=== PATIENT | male | born 1985 | race Caucasian/White ===

== ENCOUNTER 2024-07-19 06:02 | Day surgery (SDC) | payer BC ==
[2024-07-15 08:27] VITALS: BMI 46.7
[2024-07-19] MEDS ORDERED: Bupivacaine/Epinephrine 0.25% 30 ML VIAL ONE (06:45)
[2024-07-19] MEDS ORDERED: CEFAZOLIN 2 GM VIAL ONE (07:05)
[2024-07-19] MEDS ORDERED: Famotidine/PF 20 mg/2ml Vial ONE (07:07)
[2024-07-19] MEDS ORDERED: PROPOFOL 40 ML ONE (07:18)
[2024-07-19] MEDS ORDERED: Fentanyl 100 MCG/2 ML VIAL ONE (07:18)
[2024-07-19] MEDS ORDERED: Rocuronium Bromide 10 MG/ML (10ML VIAL) ONE (07:20)
[2024-07-19] MEDS ORDERED: Lidocaine 2% PF 5 ML VIAL ONE (07:21)
[2024-07-19] MEDS ORDERED: Ketorolac Tromethamine 30 MG (1 mL) VIAL ONE (07:39)
[2024-07-19] MEDS ORDERED: Ondansetron PF 4 MG/2 ML Vial ONE (07:39)
[2024-07-19] MEDS ORDERED: Dexamethasone 4 mg/ml Vial ONE (07:39)
[2024-07-19] MEDS ORDERED: SUGAMMADEX SODIUM 200 MG/2 ML VIAL ONE (07:39)
[2024-07-19] MEDS ORDERED: Dexmedetomidine 200 MCG/2 ML VIAL ONE (07:53)
[2024-07-19] MEDS ORDERED: fentaNYL 50 mcg/mL 1 mL Vial ONE (08:48)
[2024-07-19] MEDS ORDERED: HYDROcodone/Acetaminophen 5/325 mg Tablet ONE (09:15)
== END 2024-07-19 09:50 | disposition home or self-care (01) ==
LOC: CSHSDC 06:02
PROVIDERS: ATTEND Surgery
PROC: 0YU64JZ Supplement Left Inguinal Region with Synthetic Substitute, Percutaneous Endoscopic Approach (ICD-10-PCS; principal; 2024-07-19)
DX: K40.90 Unilateral inguinal hernia, without obstruction or gangrene, not specified as recurrent (principal); I10 Essential (primary) hypertension; G47.33 Obstructive sleep apnea (adult) (pediatric); E78.5 Hyperlipidemia, unspecified; E66.01 Morbid (severe) obesity due to excess calories; Z68.42 Body mass index [BMI] 45.0-49.9, adult; Z90.89 Acquired absence of other organs; Z88.2 Allergy status to sulfonamides; Z79.85 Long-term (current) use of injectable non-insulin antidiabetic drugs
CPT/HCPCS: J1100; J1885; J2405; J2704; J3010; J3490; S2900